=== PATIENT | female | born 1980 | race Caucasian/White ===

== ENCOUNTER 2024-08-11 19:54 | Emergency (ER) | payer SELFPAY ==
[2024-08-11 20:03] VITALS: BP 119/74; PULSE 80; RESP 16; TEMP 36.6; O2SAT 98; BMI 59.0
--- NOTE | 2024-08-11 20:54 | ED.SKABFB ---
HPI - Skin/Abscess/Foreign Bdy General Chief complaint: Skin/Abscess/Foreign Body Stated complaint: bad rash with a lump now Time Seen by Provider: 08/11/24 20:40 Source: patient Mode of arrival: Ambulatory History of Present Illness HPI narrative: 44-year-old female presents for evaluation of rash over her left shoulder as well as a ?lump? that moves. rash has been present for several days. Reports family hx of a rare skin disorder, Darier's disease, however patient has not seen a [employer] former in several years. Taking ibuprofen prn for pain and applying ice. Related Data Previous Rx's Medication Instructions Recorded dexamethasone 4 mg tablet 4 mg PO BID #10 tabs 08/11/24 Patient History Social History Smoking Status: Never smoker Smoking Status: Never smoker Exam Initial Vital Signs Initial Vital Signs: Vital Signs Temperature 97.8 F 08/11/24 20:03 Pulse Rate 80 08/11/24 20:03 Respiratory Rate 16 08/11/24 20:03 Blood Pressure 119/74 08/11/24 20:03 Pulse Oximetry 98 08/11/24 20:03 Oxygen Delivery Method Room Air 08/11/24 20:03 Const: Awake, alert, no acute distress, nontoxic appearing Lymph: 1cm tender, mobile lymph node L supraclavicular region Skin: erythematous, crusting, maculopapular rash over anterior L chest wall just crossing midline, extending up to L collarbone/shoulder region Neuro: AO x3, CN II-XII grossly intact, moves all extremities Course Vital Signs Vital signs: Vital Signs - 8 hr 08/11/24 20:03 08/11/24 21:09 08/11/24 21:10 Temperature 97.8 F Pulse Rate 80 70 69 Respiratory Rate 16 18 16 Blood Pressure 119/74 130/75 130/75 Pulse Oximetry 98 100 100 Oxygen Delivery Method Room Air Room Air Room Air MDM - Skin/Abscess/Foreign Bdy MDM Narrative Medical decision making narrative: Rash over left chest wall with mobile, tender lymph node in the supraclavicular region. Rash does somewhat cross midline. Patient reports primary concern is the 'lump', which is the lymph node described above. Uncertain etiology of patient's rash, however it does not appear cellulitic. Reports family hx of rare skin disease. Will trial steroids to see if this improves rash. Patient reports adverse reaction to prednisone and so Decadron will be given instead. Patient was advised that she should follow up with Dermatology. Discharge Plan Departure Patient Disposition: Home Clinical Impression: Rash, Lymphadenopathy Instructions: DI for Atopic Dermatitis-Adult Activity Restrictions/Additional Instructions: The lump that you have referred to on your shoulder area appears to be a lymph node, that is likely reacting to your rash. I am not exactly certain what is causing this rash, but it does not appear to be a bacterial process at this time. Take the steroids as prescribed. If it was not improve I do recommend following up with the [employer] former to see if they feel a biopsy is necessary. Prescriptions: New dexamethasone 4 mg tablet 4 mg PO BID Qty: 10 0RF Stand Alone Forms: Patient Portal/API/Survey
[2024-08-11 21:09] VITALS: BP 130/75; PULSE 70; RESP 18; O2SAT 100
[2024-08-11 21:10] VITALS: BP 130/75; PULSE 69; RESP 16; O2SAT 100
== END 2024-08-11 21:12 | disposition home or self-care (01) ==
PROVIDERS: Emergency Provider Emergency Medicine
DX: R21 Rash and other nonspecific skin eruption (principal); R59.1 Generalized enlarged lymph nodes
CPT/HCPCS: 99281